=== PATIENT | female | born 1985 | race Caucasian/White ===

== ENCOUNTER 2022-07-07 10:20 | Outpatient (CLI) | payer MEDICAID ==
[~2022-07-07 10:20] MED LIST: NO HOME MEDS
== END 2022-07-07 23:59 | disposition home or self-care (01) ==
LOC: CARD DIAG 10:20
PROVIDERS: ATTEND Internal Medicine Cardiovascular Disease
DX: Q21.12 Patent foramen ovale (principal); I08.8 Other rheumatic multiple valve diseases
CPT/HCPCS: 93308

== ENCOUNTER 2025-06-01 08:43 | Inpatient (IN) | payer MEDICAID, SELFPAY ==
[2025-06-01] VITALS (12 sets, daily range): BP systolic 109–155; BP diastolic 64–85; PULSE 44–82; RESP 10–20; TEMP 97.9; O2SAT 97–100
[~2025-06-01] VITALS: Ht 154.9 cm; Wt 62.1 kg
--- NOTE | 2025-06-01 10:41 | Physician Documentation ---
History of Present Illness ~ Chief Complaint: See Chief Complaint Stated Complaint: DOC REFERRED FOR SURGERY; EFFUSION ANKLE RIGHT; Time Seen by MD: 10:34 Primary Medical Doctor: Supriya HASSAN 39-year-old female, with a right ankle fracture, presenting because she was told to come in to get admitted for surgery She tells me that her surgeon is Dr. Miles. She was not able to get to her surgical appointment yesterday and so she was told to come check in through the ER to be admitted for surgery. She reports pain in her right ankle, but otherwise denies any acute concerns. She has been NPO since midnight Medication Reconciliation Allergies: Coded Allergies: No Known Allergies (Unverified , 06/01/25) Miscellaneous Medications Home Med List (No Home Medications), (Reported) Past Medical History Past Medical History: Hernia Past Surgical History: no surgical history Alcohol Use: None Lives In: Home Review of Systems Musculoskeletal: Reports: joint pain Physical Exam Vital Signs: Temperature: 98.7, Heart Rate: 65, Respiratory Rate: 16, BP: 117/64, Pulse Oximetry: 96, Weight: 68.100 Oxygen Flow Rate: 0 Physical Exam General: This is a pleasant and well-appearing young woman wearing a walking boot over her right ankle, partner at bedside HEENT: Atraumatic, oropharynx appears dry Heart: Regular rate and rhythm, normal-appearing peripheral perfusion Lungs: normal work of breathing, normal oxygen saturation on room air Extremities: Warm and well-perfused. Walking boot over the right lower extremity Neuro: Alert and oriented Psychiatric: Calm and cooperative with exam Progress Results/Orders Results/Orders Orders - JERZY DE LUNA MD CMP (06/01/25 10:41) Completed Orders - JERZY DE LUNA MD Cbc/Diff (06/01/25 10:41) Pt Inr (06/01/25 10:41) Vital Signs 06/01/25 08:48 Temp 98.7 Pulse 65 Resp 16 B/P (MAP) 117/64 Pulse Ox 96 O2 Flow Rate 0 Laboratory Tests Test 06/01/25 10:51 White Blood Count 6.1 Red Blood Count 3.42 L Hemoglobin 11.3 L Hematocrit 32.7 L Mean Corpuscular Volume 95.8 Mean Corpuscular Hemoglobin 33.1 H Mean Corpuscular Hemoglobin Concent 34.6 Red Cell Distribution Width 12.9 Platelet Count 257 Mean Platelet Volume 7.6 Neutrophils (%) (Auto) 52.8 Lymphocytes (%) (Auto) 35.2 Monocytes (%) (Auto) 9.1 Eosinophils (%) (Auto) 2.1 Basophils (%) (Auto) 0.8 Neutrophils # (Auto) 3.2 Lymphocytes # (Auto) 2.1 Monocytes # (Auto) 0.6 Eosinophils # (Auto) 0.1 Basophils # (Auto) 0.0 CBC Comment Prothrombin Time 11.2 INR International Normalized Ratio 1.1 Coagulation Comments Chemistry Comments Consults/PCP Consults/PCP : Additional Comment Orthopedics team contacted and plan for admission for surgery Medical Decision Making Additional Comment The patient presents to be admitted for orthopedic surgery. She has no other acute complaints. Preoperative labs were ordered. She will be admitted for further care. Departure Disposition: ADMITTED INPATIENT Impression: Primary Impression: Ankle fracture Referrals: NO PRIMARY CARE PROVIDER (PCP) Signature Scribe Signature: na Attestation: JERZY Trevino MD Jun 01, 2025 10:41
[2025-06-01 11:10] LABS: MEAN PLATELET VOLUME 7.6 FL (7.4-10.4); RED CELL DISTRIBUTION WIDTH 12.9 % (11.5-14.5)
[2025-06-01 11:13] LABS: INR 1.1 INR
[2025-06-01 11:49] LABS: CREATININE 0.65 MG/DL (0.40-0.90); TOTAL CARBON DIOXIDE 24.5 MMOL/L (24-32); eCRCL 87 ML/MIN; eGFR > 90 ML/MIN
--- NOTE | 2025-06-01 11:53 | HISTORY AND PHYSICAL ---
History & Physical Providers to CC ~ History of Present Illness Allergies: Coded Allergies: No Known Allergies (Unverified , 06/01/25) Home Medications Home Medications Active Reported No Home Medications (Home Med List) Each Exam Vitals: Vital Signs Date Time Temp Pulse Resp B/P (MAP) Pulse Ox O2 Delivery O2 Flow Rate FiO2 06/01/25 11:41 66 16 130/71 (90) 99 06/01/25 08:48 98.7 0 Diagnostic Data Last Recorded Lab Results: 06/01/25 1051 06/01/25 1051 Diagnostic Data: Laboratory Tests Test 06/01/25 10:51 Prothrombin Time 11.2 SECONDS (9.0-12.0) INR International Normalized Ratio 1.1 INR Coagulation Comments JAKE SANCHEZ MD Jun 01, 2025 11:53
[2025-06-01] MEDS ORDERED: ondansetron/PF 4mg/2ml inj IV PRN ×2 (11:55→18:00)
[2025-06-01] MEDS ORDERED: magnesium sulf-water 2g/50mL 50 ML IV PRN (11:55)
[2025-06-01] MEDS ORDERED: potassium Cl 20 mEq SR tablet PO PRN ×2 (11:55)
[2025-06-01] MEDS ORDERED: magnesium Cl slow-release 64mg tablet PO PRN (11:55)
[2025-06-01] MEDS ORDERED: mag hydrox/Alum hydrox/simeth 30ml oral suspension PO PRN (11:55)
[2025-06-01] MEDS ORDERED: potassium cl 20mEq in 1/2 NS 1,000 ML IV SCH (11:55)
[2025-06-01] MEDS ORDERED: magnesium hydroxide 30ml (MOM) UD suspension PO PRN (11:55)
[2025-06-01] MEDS ORDERED: HYDROcodone/acetaminophen 10/325mg tab PO PRN (11:55)
[2025-06-01] MEDS ORDERED: HYDROcodone/acetaminophen 5mg/325mg tablet PO PRN (11:55)
[2025-06-01] MEDS ORDERED: magnesium sulf-water 4G/100mL 100 ML IV PRN (11:55)
[2025-06-01] MEDS: potassium Cl 40MEQ/1/2NS 520ml 520 ML IV PRN (12:53)
[2025-06-01] MEDS ORDERED: GABA-530 PO (13:59)
[2025-06-01] MEDS ORDERED: LEVE10002 PO (13:59)
[2025-06-01] MEDS ORDERED: TRAZ-251 PO (13:59)
[2025-06-01] MEDS ORDERED: POTA-192 PO (13:59)
[2025-06-01] MEDS ORDERED: RIME75TA PO (13:59)
[2025-06-01] MEDS ORDERED: HYDR-3686 PO (13:59)
[2025-06-01] MEDS ORDERED: HYDR-3964 (13:59)
[2025-06-01] MEDS ORDERED: LOSA50TA64 PO (13:59)
[2025-06-01] MEDS ORDERED: BUPIVAcaine/PF 2.5mg/ml (0.25%) 10ml vial ONE (14:40)
[2025-06-01] MEDS ORDERED: bacitracin 15gm ointment TP ONE (14:41)
[2025-06-01] MEDS: ceFAZolin 2gm/dext,iso 50mL 50 ML IV ONE (15:19)
[2025-06-01] MEDS: ringers solution, lacted 1,000 ML IV SCH (15:19)
[2025-06-01] MEDS ORDERED: cloNIDine hcl/PF 100mcg/ml inj ONE (15:25)
[2025-06-01] MEDS ORDERED: fentaNYL/PF 50MCG/1 ML 2ML syringe ONE (15:38)
[2025-06-01] MEDS ORDERED: midazolam 1 mg/ML 2ml injection ONE (15:39)
[2025-06-01] MEDS ORDERED: propofol inj 20 ML IV ONE (15:39)
[2025-06-01] MEDS ORDERED: ROPIVAcaine 0.5% (5mg/ml) 30ml vial ONE ×2 (15:40)
[2025-06-01] MEDS ORDERED: dexamethasone sod phosphate 4mg/ml inj. ONE (15:43)
[2025-06-01] MEDS ORDERED: ondansetron/PF 4mg/2ml inj ONE (17:26)
[2025-06-01] MEDS ORDERED: hydrALAZINE 20mg/ml inj. IV PRN (18:00)
[2025-06-01] MEDS ORDERED: ringers solution, lacted 1,000 ML IV SCH (18:00)
[2025-06-01] MEDS ORDERED: morphine 4 MG/ML inj SYRINge IV PRN (18:00)
[2025-06-01] MEDS ORDERED: labetalol 20mg/4ml (5mg/ml) syringe IV PRN (18:00)
[2025-06-01] MEDS ORDERED: HYDROmorphone/PF 0.2 MG/ML SYRINGE IV PRN ×2 (18:00)
--- NOTE | 2025-06-01 18:43 | RADIOLOGY REPORT ---
FLUOROSCOPY, OPERATING ROOM PROCEDURE REASON FOR EXAM: RIGHT ANKLE FLUOROSCOPY TIME: 54.6 second PEAK SKIN DOSE: 3.70 mGy FINDINGS: Fluoroscopy was provided for JAKE SANCHEZ. 6 fluoroscopic spot images are submitted to [facility]. IMPRESSION: Intraoperative fluoroscopic assistance. Please refer to the operative report for a description of th e findings.
[2025-06-01] MEDS: HYDROcodone/acetaminophen 10/325mg tab PO ONE (18:46)
[2025-06-01] MEDS: acetaminophen 1,000mg/100ml IV 100 ML IV PRN (19:03)
[2025-06-01] MEDS ORDERED: K and/or MAG REPLACEMENT MC SCH (20:00)
[2025-06-01] MEDS ORDERED: docusate sod 100mg capsule PO SCH (20:00)
[2025-06-02] MEDS ORDERED: enoxaparin 40mg/0.4ml syringe SUBCUT SCH (08:00)
--- NOTE | 2025-06-02 08:23 | OPERATIVE REPORT ---
DATE OF SURGERY: 06/01/2025 DICTATING PHYSICIAN: RUI MILES DPM PREOPERATIVE DIAGNOSIS: Right ankle fracture. POSTOPERATIVE DIAGNOSIS: Right ankle fracture. PROCEDURES: * Open reduction and internal fixation right ankle fracture. * Syndesmosis stress examination under fluoroscopic imaging. SURGEON: Rui Miles DPM MAC ARTIST: Filemon Romero DPM fellow. Assistance was needed to decrease tourniquet time, help with efficiency and retraction throughout the entirety of the procedure. ANESTHESIA: General anesthesia. HEMOSTASIS: A thigh tourniquet at 300 mmHg. FINDINGS: Stability to the syndesmosis and deltoid with stress examination. HARDWARE: DJO locking plate with locking and nonlocking screws. COMPLICATIONS: None. SPECIMENS: None. ESTIMATED BLOOD LOSS: Less than 10 mL. INDICATIONS: The patient presented to the office with the above-listed complaints which have been unresponsive to conservative treatment options. Thus, surgical options have been offered along with all potential risks, complications, and surgical outcomes being fully explained to the patient's level of understanding. No guarantees were given. Clinical and radiographic data correlate with the above diagnosis. The patient presented to my office with a lateral and posterior malleolar fracture that was unstable upon radiographic evaluation. We did talk to her about nonoperative versus operative plans and the patient elected for surgical intervention. The patient was originally supposed to have surgery yesterday, but ended up not showing up, so I had to present her through the emergency room today to have surgery today. The patient is from what she tells me a largely healthy female, so should be okay to leave post surgery if everything goes well. DESCRIPTION OF PROCEDURE: The patient was brought to the operating room and placed on the operating table in supine position. The patient was induced under general anesthesia. The patient received a popliteal and saphenous nerve block. The foot and ankle were prepped and draped in usual aseptic fashion. Previously applied thigh tourniquet was inflated to 300 mmHg after a timeout was called and preoperative antibiotics were given, dosed appropriately. Open reduction and internal fixation of ankle fracture with syndesmosis stress examination. We then brought our attention to the lateral aspect of the patient's right ankle where the fibula fracture was located. We then made a standard linear incision. Using a 15 blade, we carefully dissected down to the level of the subcutaneous tissue with care being taken to identify and retract all vital neurovascular structures. After this, we then carefully dissected down to the level of deep fascia using electrocautery to cauterize microvasculature appropriately. After this, we identified the fibular fracture and the soft callus, which was cleaned up and then we reduced the patient's fibular fracture using intraoperative fluoroscopic imaging. We then placed an interfrag screw with a 2.7-mm fully threaded headed screw by leg by technique with DJO. It was noted to have excellent compression and then we placed a lateral fibular one-third tubular plate over the fibula and then we filled the holes with 3.5 and 4.0 locking and nonlocking screws. It was noted that there was excellent compression, stability, and placement of our hardware. After this, we then placed the patient's ankle in a mortise position under fluoroscopic imaging and then we stressed and it was noted that there was no diastasis of the tib-fib complex or no medial clear space opening and there was no deltoid insufficiency, so therefore, we chose to conclude our procedure right here. The incision was then flushed with copious amounts of sterile normal saline as well as IrriSept solution and then we closed in a layered fashion. A 3-0 Vicryl was used to close deep fascia and subcutaneous tissue and 3-0 nylon super skin in horizontal mattress technique. The incisions was then dressed with triple antibiotic ointment followed by Adaptic, 4 x 4's, Webril, and the patient was then placed into a well-padded posterior splint with foot held in neutral position. The tourniquet was deflated. The patient was taken out of general anesthesia and placed in PACU. Vital signs stable and vascular status intact to the operative foot. The patient is going to be nonweightbearing to the operative foot and is instructed to follow up with me in approximately 1-2 weeks after surgery. The entire case was performed in a teaching fashion. I was available pre, postoperatively to answer questions from the patient and her family. RUI MILES DPM TID: [id number] RECEIPT: [id number] ELVIN/NITZA
== END 2025-06-01 20:00 | disposition home or self-care (01) | DRG 313 ==
LOC: ER 08:44 → ED HOLD 11:56 → EDBEDREQ 13:59 → ED HOLD 19:31
PROVIDERS: ADMIT Internal Medicine; ATTEND Internal Medicine
PROC: 0QSJ04Z Reposition Right Fibula with Internal Fixation Device, Open Approach (ICD-10-PCS; principal; 2025-06-01 16:24)
DX: S82.491A Other fracture of shaft of right fibula, initial encounter for closed fracture (principal); W18.39XA Other fall on same level, initial encounter; Y93.89 Activity, other specified; Y92.89 Other specified places as the place of occurrence of the external cause; Y99.8 Other external cause status
CPT/HCPCS: 36415; 73600; 76000; 80053; 82948; 85025; 85610; 96361; 96374; 99285; A4618; A6223; A6253; A6449; A7000; C1713; G0378; J0131; J0735; J1100; J2250; J2405; J2704; J2795; J3010; J3480; J3490; J7120